=== PATIENT | female | born 1990 | race Caucasian/White ===

== ENCOUNTER 2016-09-28 13:16 | Emergency (ER) | payer OTHER ==
[~2016-09-28] VITALS: Ht 165.1 cm; Wt 55.0 kg
[2016-09-28] MEDS ORDERED: FLEXERIL10 MG PO (15:47)
[2016-09-28] MEDS ORDERED: MOTRIN800 MG PO (15:47)
[2016-09-28] MEDS ORDERED: ANTIVERT25 MG PO (15:49)
[2016-09-28] MEDS ORDERED: ZOFRAN ODT4 MG PO (15:49)
[2016-09-28 16:17] VITALS: BP 117/86
== END 2016-09-28 16:20 | disposition home or self-care (01) ==
LOC: EME 13:16
DX: S00.03XA Contusion of scalp, initial encounter (principal); S46.911A Strain of unspecified muscle, fascia and tendon at shoulder and upper arm level, right arm, initial encounter; S16.1XXA Strain of muscle, fascia and tendon at neck level, initial encounter; S70.02XA Contusion of left hip, initial encounter; S40.011A Contusion of right shoulder, initial encounter; S06.0X0A Concussion without loss of consciousness, initial encounter; M54.5 Low back pain; V03.10XA Pedestrian on foot injured in collision with car, pick-up truck or van in traffic accident, initial encounter; Y92.488 Other paved roadways as the place of occurrence of the external cause; F17.200 Nicotine dependence, unspecified, uncomplicated
CPT/HCPCS: 70450; 72040; 72100; 73030; 73502; 99281; 99284

== ENCOUNTER 2016-12-22 11:18 | Emergency (ER) | payer OTHER ==
[~2016-12-22] VITALS: Ht 165.1 cm; Wt 54.4 kg
[~2016-12-22 11:18] MED LIST: ANTIVERT25 MG PO; FLEXERIL10 MG PO; MOTRIN800 MG PO; ZOFRAN ODT4 MG PO
[2016-12-22] MEDS ORDERED: WELLBUTRIN XL300 MG PO (12:27)
[2016-12-22] MEDS ORDERED: LITHIUM CARBON300 MG PO (12:27)
[2016-12-22] MEDS ORDERED: SEROQUEL XR150 MG PO (12:28)
[2016-12-22] MEDS ORDERED: CLONIDINE HCL0.1 MG PO (12:28)
[2016-12-22] MEDS ORDERED: AMANTADINE100 MG PO (12:29)
[2016-12-22 14:11] LABS: HEMATOCRIT 36.3 % (36.0-46.0); MCH 29.6 PG (29.0-34.0); MCV 92.6 FL (83-99); MEAN PLAT.VOLUME 11.9 uM^3 (9.5-12.4); PLATELET COUNT 184 K/uL (156-360); RBC DIS.WIDTH-CV 13.3 % (11.8-14.6); RBC DIS.WIDTH-SD 45.4 % (39-53); RED BLOOD COUNT 3.92 M/uL (3.80-5.20)
[2016-12-22 14:19] LABS: CHLORIDE 110 mEq/L (99-109); POTASSIUM 4.3 mEq/L (3.7-5.4); SODIUM 142 mEq/L (136-147)
[2016-12-22 14:21] LABS: GLUCOSE 92 mg/dL (70-99)
[2016-12-22 14:22] LABS: ANION GAP 7 MEQ/L (2-14)
[2016-12-22 14:25] LABS: GFR ESTIMATE (CALCULATED) > 59 mL/min/; UREA NITROGEN (BUN) 12 mg/dL (9-23)
[2016-12-22 14:28] LABS: ADD MIUA? YES; BILIRUBIN NEGATIVE; BLOOD NEGATIVE; COLOR YELLOW ((YELLOW)); GLUCOSE (STRIP) NEGATIVE; KETONES NEGATIVE; LEUKOCYTES NEGATIVE; NITRITE NEGATIVE; PROTEIN (STRIP) NEGATIVE; SPECIFIC GRAVITY 1.015 (1.000-1.030); UROBILINOGEN 0.2 MG/DL (0.2-1.0)
[2016-12-22 14:32] LABS: BACTERIA NONE SEEN /HPF; BUDDING YEAST 2+; CALCIUM OXALATE CRYSTALS 2+ /HPF; EPITHELIAL CELLS RARE /HPF; MUCUS 1+ /LPF; RED BLOOD CELLS 0-5 /HPF (0-5); UCUL ADDED? NO; WHITE BLOOD CELLS 0-5 /HPF (0-5)
[2016-12-22] MEDS ORDERED: MOTRIN800 MG PO (15:00)
[2016-12-22 15:10] VITALS: BP 123/69
== END 2016-12-22 15:12 | disposition home or self-care (01) ==
LOC: EME 11:18
PROVIDERS: Nurse Practitioner Family
DX: M25.511 Pain in right shoulder (principal); B34.9 Viral infection, unspecified; F17.200 Nicotine dependence, unspecified, uncomplicated; Z71.6 Tobacco abuse counseling
CPT/HCPCS: 73030; 80048; 81003; 85027; 99281; 99283

== ENCOUNTER 2017-01-11 02:07 | Observation (INO) | payer OTHER ==
[~2017-01-11] VITALS: Ht 165.1 cm; Wt 58.1 kg
[~2017-01-11 02:07] MED LIST changes: +AMANTADINE100 MG PO; +CLONIDINE HCL0.1 MG PO; +LITHIUM CARBON300 MG PO; +SEROQUEL XR150 MG PO; +WELLBUTRIN XL300 MG PO
[2017-01-11 02:32] LABS: EOSINOPHIL (%) 1.9 % (0-5); EOSINOPHIL COUNT 0.2 K/uL (0-0.3); HEMATOCRIT 39.9 % (36.0-46.0); IMMATURE GRANULOCYTE (%) 0.5 % (0.0-0.7); INSTRUMENT ABS NEUTROPHIL CT 5.3 K/uL; MCH 29.1 PG (29.0-34.0); MCHC 31.6 G/DL (30.0-36.0); MCV 92.1 FL (83-99); MEAN PLAT.VOLUME 11.8 uM^3 (9.5-12.4); MONOCYTE (%) 6.4 % (3-12); MONOCYTE COUNT 0.5 K/uL (0-0.8); NEUTROPHIL COUNT 5.3 K/uL (1.8-6.4); PLATELET COUNT 226 K/uL (156-360); RBC DIS.WIDTH-CV 13.1 % (11.8-14.6); RBC DIS.WIDTH-SD 44.3 % (39-53); RED BLOOD COUNT 4.33 M/uL (3.80-5.20)
[2017-01-11 02:44] LABS: CHLORIDE 107 mEq/L (99-109)
[2017-01-11 02:45] LABS: POTASSIUM 3.4 mEq/L (3.7-5.4); SODIUM 137 mEq/L (136-147)
[2017-01-11 02:46] LABS: GLUCOSE 120 mg/dL (70-99)
[2017-01-11 02:48] LABS: ANION GAP 17 MEQ/L (2-14)
[2017-01-11 02:49] LABS: SERUM ETHYL ALCOHOL < 10 mg/dL
[2017-01-11 02:50] LABS: GFR ESTIMATE (CALCULATED) > 59 mL/min/
[2017-01-11 02:51] LABS: UREA NITROGEN (BUN) 12 mg/dL (9-23)
[2017-01-11 02:53] LABS: CREATINE KINASE 50 IU/L (1-294)
[2017-01-11 03:24] LABS: AMPHETAMINE NEGATIVE (500 ng/mL); BARBITURATES NEGATIVE (200 ng/mL); BENZODIAZEPINES PRESUMPTIVE POSITIVE (150 ng/mL); COCAINE NEGATIVE (150 ng/mL); INTERNAL CONTROLS VALID? YES; METHADONE NEGATIVE (200 ng/mL); METHAMPHETAMINE NEGATIVE (500 ng/mL); OPIATES (MORPHINE) NEGATIVE (100 ng/mL); OXYCODONE NEGATIVE (100 ng/mL); PHENCYCLIDINE NEGATIVE (25 ng/mL); PROPOXYPHENE NEGATIVE (300 ng/mL); THC CANNABINOIDS NEGATIVE (50 ng/mL); TRICYCLIC ANTIDEPRESSANTS NEGATIVE (300 ng/mL)
[2017-01-11 03:25] LABS: ADD MEDTOX COMMENT Y
[2017-01-11 03:59] LABS: BENZODIAZEPINES QUANT VALUE 0 NG/ML; BENZODIAZEPINES, URINE SCREEN Negative (200 ng/mL)
[2017-01-11 05:11] LABS: CHLORIDE 114 mEq/L (99-109); POTASSIUM 3.4 mEq/L (3.7-5.4); SODIUM 139 mEq/L (136-147)
[2017-01-11 05:12] LABS: GLUCOSE 92 mg/dL (70-99)
[2017-01-11 05:14] LABS: ANION GAP 8 MEQ/L (2-14)
[2017-01-11 05:16] LABS: GFR ESTIMATE (CALCULATED) > 59 mL/min/
[2017-01-11 05:17] LABS: UREA NITROGEN (BUN) 11 mg/dL (9-23)
[2017-01-11 09:00] LABS: TROP-I INTERPRETATION NEGATIVE
[2017-01-11 10:11] VITALS: BP 105/63
[2017-01-11 11:19] LABS: ADD MIUA? NO; BILIRUBIN NEGATIVE; BLOOD NEGATIVE; COLOR YELLOW ((YELLOW)); GLUCOSE (STRIP) NEGATIVE; KETONES NEGATIVE; LEUKOCYTES NEGATIVE; NITRITE NEGATIVE; PROTEIN (STRIP) NEGATIVE; SPECIFIC GRAVITY 1.008 (1.000-1.030); UCUL ADDED? NO; UROBILINOGEN 0.2 MG/DL (0.2-1.0)
[2017-01-11] MEDS ORDERED: SEROQUEL400 MG PO (11:38)
[2017-01-11] MEDS ORDERED: GABAPENTIN400 MG PO (11:40)
[2017-01-11] MEDS ORDERED: LAMOTRIGINE200 MG PO (11:42)
[2017-01-11] MEDS ORDERED: VENTOLIN HFA18 GM IH (11:43)
[2017-01-11] MEDS ORDERED: MINIPRESS2 MG PO (11:43)
[2017-01-11] MEDS ORDERED: SEROQUEL50 MG PO (12:00)
[2017-01-11 12:04] VITALS: BP 152/88; BP 92/56
[2017-01-11 15:19] LABS: TROP-I INTERPRETATION NEGATIVE; TROPONIN-I 0.03 ng/mL (0.0-0.30)
[2017-01-11 18:01] VITALS: BP 93/53
[2017-01-11 19:00] VITALS: BP 99/54
[2017-01-11 21:51] LABS: TROP-I INTERPRETATION NEGATIVE; TROPONIN-I 0.03 ng/mL (0.0-0.30)
== END 2017-01-11 21:53 | disposition left against medical advice (07) ==
LOC: EME → EDBD 02:07 → EME 02:07 → 5WEST 07:35 → EDOF 07:35 → 5WEST 08:35
PROVIDERS: Emergency Medicine; Internal Medicine
DX: R56.9 Unspecified convulsions (principal); E87.6 Hypokalemia; E87.2 Acidosis
CPT/HCPCS: 70450; 80048; 80048 91; 80178; 81003; 82550; 84484; 84999; 85025; 93005; 95819; 99202; 99281; 99285; G0378; G0480; J1953; J2060; J2405; J7030; J7050; J7120